=== PATIENT | male | born 1990 | race Caucasian/White ===

== ENCOUNTER 2018-07-28 10:59 | Emergency (ER) | payer OTHER ==
[~2018-07-28] VITALS: Ht 170.2 cm; Wt 61.2 kg
--- NOTE | 2018-07-28 11:15 | NUR ---
ED Nurse Note: pt is aox 4. pt is self ambulatory with steady gait. pt came from work c/o of pain on the left ankle due to a beer keg landing on his foot. pain radiates from mid left calve to left big toe. per pt pain is 8/10 when performing ADLs and is 6/10 at rest. minor cut present at the left achilles. will continue to monitor and wait further md orders.
--- NOTE | 2018-07-28 12:05 | Diagnostic Imaging Report ---
Indication: Foot pain Comparison: None Findings: 3 views of the left foot were obtained. On the lateral view at the dorsal surface of the distal talus there is a small sliver of bone probably representing an avulsion injury. Acuity of this is not known and this could certainly be old. Correlate clinically. There is no definite soft tissue swelling. No other fractures are seen. No malalignment identified. IMPRESSION: Apparent mild avulsive injury along the dorsal aspect of the distal talus. Correlate clinically.
--- NOTE | 2018-07-28 12:06 | Diagnostic Imaging Report ---
Indication: left ankle pain Comparison: None Findings: 3 views of the left ankle obtained. No malalignment, periostitis, or osteochondral defects are identified. Soft tissues are unremarkable. Small avulsive injury again noted at the dorsal part of the distal talus Impression: Avulsive injury distal talus
[2018-07-28] MEDS ORDERED: NKM (13:46)
--- NOTE | 2018-07-28 15:01 | Emergency Room Report ---
History of Present Illness General Chief Complaint: Lower Extremity Injury Source: Patient Present Illness HPI This patient states that he was at work today and a beer keg fell onto the back of his R. foot/ankle/heel. He states that he was kneeling down and it fell onto the back of his foot. He has pain at the location of the impact. No other injuries or complaints. Allergies: Coded Allergies: No Known Allergies (Unverified , 07/28/18) Patient History Past Medical History: none, see triage record Social History: Denies: smoking, alcohol use, drug use Reviewed Nursing Documentation: PMH: Agreed; PSxH: Agreed Nursing Documentation-PMH Past Medical History: No Stated History Review of Systems All Other Systems: negative except mentioned in HPI Physical Exam Vital Signs Date Time Temp Pulse Resp B/P (MAP) Pulse Ox O2 Delivery O2 Flow Rate FiO2 07/28/18 11:06 98.6 73 20 119/80 98 Room Air Sp02 EP Interpretation: reviewed, normal General Appearance: no apparent distress, alert, GCS 15, non-toxic Head: normocephalic, atraumatic Eyes: bilateral eye normal inspection, bilateral eye PERRL ENT: hearing grossly normal, normal pharynx, no angioedema, normal voice Neck: normal inspection Respiratory: no respiratory distress, no retraction, no accessory muscle use, speaking full sentences Rectal: deferred Musculoskeletal: back normal, normal range of motion, other - TTP over the L. posterior calcaneous with a 4 mm superficial abrasion. 5/5 MS (specifically 5/ 5 plantarflexion) Neurologic: alert, oriented x3, responsive, motor strength/tone normal, sensory intact, speech normal Psychiatric: judgement/insight normal, memory normal, mood/affect normal, no suicidal/homicidal ideation Skin: normal color, no rash, warm/dry, well hydrated Procedures Splinting Splinting : Consent: Verbal Location: L. leg Hand-Made Type: plaster Splint: poserior short Pre-Proc Neuro Vasc Exam: normal Post-Proc Neuro Vasc Exam: normal Patient Tolerated: Well Complications: None Medical Decision Making Diagnostic Impression: Primary Impression: Contusion of left heel Additional Impression: Avulsion fracture of talus ER Course This patient has a contusion of his left heel. The Achilles tendon is intact. On the anterior portion of the talus there is a tiny avulsion fracture. I did discuss the case with the on-call orthopedist Dr. Chowdhury. He states that he is happy to follow-up with this patient in his clinic. The patient is a [employer]'s Comp case so the patient will need to clear this through [employer]. However, I will give the patient the information for Dr. Chowdhury. The patient was placed in a short leg splint given crutches for comfort. He is instructed to follow-up closely with orthopedic surgery. Other X-Ray Diagnostic Results Other X-Ray Diagnostic Results : X-Ray ordered: L. foot, L. ankle xray # of Views/Limited Vs Complete: Complete Indication: Other - trauma EP Interpretation: No Interpretation: other - Impression: Avulsive injury distal talus Impression: Other - See above Electronically Signed by: Trinity Francisco DO Last Vital Signs Date Time Temp Pulse Resp B/P (MAP) Pulse Ox O2 Delivery O2 Flow Rate FiO2 07/28/18 14:38 98.6 07/28/18 11:06 73 20 119/80 98 Room Air Status: improved Disposition: HOME, SELF-CARE Condition: Improved Referrals: NOT CHOSEN IPA/,REFERRING (PCP) Patient Instructions: Foot Contusion Trinity Francisco DO Jul 28, 2018 15:01
[2018-07-28] MEDS ORDERED: IBUPROFEN800 MG ORAL (15:02)
[2018-07-28 15:17] VITALS: BP 120/73
--- NOTE | 2018-07-28 15:17 | NUR ---
ED Nurse Note: Pt is DC per MD order. pt has left with all belongings. pt as given dc and prescription intrusctions. patient verbalized understanding. pt is ao x 4, pt vss and has been reported to MD. pt is able to abmulate with steady gait. ID band removed prior to Dc.
== END 2018-07-28 15:17 | disposition home or self-care (01) ==
LOC: EMR 11:49
DX: S92.155A Nondisplaced avulsion fracture (chip fracture) of left talus, initial encounter for closed fracture (principal); W22.8XXA Striking against or struck by other objects, initial encounter; Y92.69 Other specified industrial and construction area as the place of occurrence of the external cause
CPT/HCPCS: 29515; 99283